=== PATIENT | male | born 1955 | race Two or more races ===

== ENCOUNTER 2017-06-15 17:29 | Emergency (ER) | payer OTHER ==
[~2017-06-15] VITALS: Ht 160 cm; Wt 61.3 kg
[2017-06-15 17:34] VITALS: BP 151/76
[2017-06-15] MEDS ORDERED: KETOROLAC 30 MG/1 ML ONE (19:17)
[2017-06-15] MEDS ORDERED: ONDANSETRON ODT 4 MG ONE (19:22)
[2017-06-15] MEDS ORDERED: HYDROcodone/APAP 5/325 TABLET ONE (19:22)
[2017-06-15] MEDS ORDERED: IBUPROFEN 200 MG TABLET ONE (19:22)
[2017-06-15] MEDS ORDERED: IBUPROFEN 200 MG TABLET PO ONE (19:30)
[2017-06-15] MEDS ORDERED: HYDROcodone/APAP 5/325 TABLET PO ONE (19:30)
[2017-06-15] MEDS ORDERED: ONDANSETRON ODT 4 MG PO ONE (19:30)
[2017-06-15] MEDS ORDERED: KETOROLAC 30 MG/1 ML IM ONE (19:30)
== END 2017-06-15 19:39 | disposition home or self-care (01) ==
LOC: ED 18:43
DX: S22.32XA Fracture of one rib, left side, initial encounter for closed fracture (principal); W19.XXXA Unspecified fall, initial encounter; Y93.89 Activity, other specified; Y92.89 Other specified places as the place of occurrence of the external cause; Y99.8 Other external cause status
CPT/HCPCS: 71101; 81003; 99285; Q0162

== ENCOUNTER 2017-12-10 10:48 | Emergency (ER) | payer OTHER ==
[~2017-12-10] VITALS: Ht 160 cm; Wt 58.3 kg
[2017-12-10 10:59] VITALS: BP 155/61
== END 2017-12-10 12:10 | disposition home or self-care (01) ==
LOC: ED 11:50
DX: K64.4 Residual hemorrhoidal skin tags (principal)
CPT/HCPCS: 99283